=== PATIENT | female | born 1955 | race Caucasian/White ===

== ENCOUNTER 2020-11-15 11:59 | Outpatient (CLI) | payer BC, SELFPAY ==
--- NOTE | ~2020-11-15 | CT_ITS ---
EXAMINATION: CT abdomen pelvis w con DATE: 11/15/2020 12:57 INDICATION: Endometrial cancer TECHNIQUE: Computed tomography (CT) of the abdomen and pelvis was performed with 100 cc Omnipaque 350 intravenous contrast. Automated exposure control and iterative reconstruction technique were employe d. Exam dose: 1401.47 mGy-cm total exam DLP. COMPARISON: None. FINDINGS: The lung bases are clear of infiltrate or consolidation. Borderline heart size. No pericard ial or pleural effusion. Small sliding hiatal hernia. Status post cholecystectomy. Diffuse hepatic steatosis. No hepatic, splenic, pancreatic, adrenal or renal space-occupying mass les ion is detected. No bile duct or pancreatic duct dilatation. No ureteral calculus or hydroureteronephrosis. The uterus and adnexal areas are unremarkable. This examination is not sensitive for detection of end ometrial malignancy. Up to 7 x 11 mm left external iliac lymph node. Shotty nonenlarged pelvic lymph nodes. 8.3 x 17 mm right inguinal lymph node. 11.4 x 21 mm left inguinal lymph node. No periaortic or aortocaval lymphadenopathy or ascites is evident. Normal caliber of the abdominal aorta. There are numerous diverticula of the left and right colon; no CT evidence of diverticulitis. No rashmi l obstruction is detected. Normal appendix. No bowel wall thickening or pneumatosis cysts or intraper itoneal free air. Diffuse idiopathic skeletal hyperostosis of the thoracic spine. Severe degenerative disc disease and minimal anterolisthesis at L2-3. Status post L3-S1 posterior spinal fusion. Status post right hip arthroplasty. Left hip osteoarthritis. IMPRESSION: Small hiatal hernia Status post cholecystectomy Hepatic steatosis Diverticulosis of left and right colon; no CT evidence of diverticulitis 7 x 11 mm left external iliac lymph node and bilateral nonspecific inguinal lymph nodes. No abdominal or pelvic mass lesion or ascites is noted. Reviewed, dictated and finalized at [facility]. Reviewed, dictated and finalized at [facility]. IMPRESSION: Small hiatal hernia Status post cholecystectomy Hepatic steatosis Diverticulosis of left and right colon; no CT evidence of diverticulitis 7 x 11 mm left external iliac lymph node and bilateral nonspecific inguinal lym ph nodes. No abdominal or pelvic mass lesion or ascites is noted.
[2020-11-15 12:45] LABS: Estimated Glomerular Filt Rate > 60
== END 2020-11-15 12:00 | disposition home or self-care (01) ==
LOC: ANHIMG 12:05
PROVIDERS: PCP Internal Medicine
DX: C54.1 Malignant neoplasm of endometrium (principal); K44.9 Diaphragmatic hernia without obstruction or gangrene; Z90.49 Acquired absence of other specified parts of digestive tract; K76.0 Fatty (change of) liver, not elsewhere classified; K57.90 Diverticulosis of intestine, part unspecified, without perforation or abscess without bleeding
CPT/HCPCS: 74177; Q9967